=== PATIENT | male | born 2000 | race Caucasian/White ===

== ENCOUNTER 2021-12-20 01:09 | Emergency (ER) | payer OTHER ==
[2021-12-20 01:28] VITALS: TEMP 98
[2021-12-20] MEDS ORDERED: DEXAMETHASONE SOD PHOSPHATE 4 MG/ML 1 ML VIAL PO STA (02:33)
--- NOTE | 2021-12-20 02:47 | ED ---
General Adult HPI - General Chief complaint: Shortness of Breath Stated complaint: SOB Time Seen by Provider: 12/20/21 02:22 Source: patient, RN notes reviewed Mode of arrival: ambulatory Limitations: no limitations - History of Present Illness Initial comments: 21-year-old male presents to the emergency department for evaluation of cough, shortness of breath, and sensation of his throat closing. Patient states he has had a cough for the past couple of weeks and intermittent shortness of breath, worsened with activity. Reports he awoke out of sleep tonight feeling as if his throat or closing. Also complains of decreased appetite. No known sick contacts. Did not take anything to treat his symptoms prior to arrival. Denies fever, chills, headache, pain with swallowing, difficulty breathing, chest discomfort, abdominal pain, nausea, vomiting, diarrhea, or dysuria. - Related Data Allergies Allergy/AdvReac Type Severity Reaction Status Date / Time No Known Allergies Allergy Verified 12/20/21 01:22 Review of Systems ROS Statement: Those systems with pertinent positive or pertinent negative responses have been documented in the HPI. ROS Other: All systems not noted in ROS Statement are negative. Past Medical History Past Medical History: No Reported History History of Any Multi-Drug Resistant Organisms: None Reported Past Surgical History: No Surgical Hx Reported Past Psychological History: No Psychological Hx Reported Smoking Status: Current every day smoker Past Alcohol Use History: None Reported Past Drug Use History: Marijuana General Exam Limitations: no limitations (Well-developed, well-nourished male in no acute distress. Initial temperature 98.0, pulse 89, respirations 16, blood pressure 138/84, pulse ox 100% on room air.) General appearance: alert, in no apparent distress ENT exam: Present: normal exam, normal oropharynx, mucous membranes moist, TM's normal bilaterally Expanded Throat exam: normal inspection Neck exam: Present: normal inspection, full ROM. Absent: tenderness, meningismus, lymphadenopathy Respiratory exam: Present: normal lung sounds bilaterally, other (Dry nonproductive cough). Absent: respiratory distress, wheezes, rales, rhonchi, stridor Cardiovascular Exam: Present: regular rate, normal rhythm, normal heart sounds. Absent: systolic murmur, diastolic murmur, rubs, gallop, clicks GI/Abdominal exam: Present: soft, normal bowel sounds. Absent: distended, te nderness, guarding, rebound, rigid Neurological exam: Present: alert, oriented X3, CN II-XII intact, normal gait Psychiatric exam: Present: normal affect, normal mood Skin exam: Present: warm, dry, intact, normal color. Absent: rash Course Vital Signs 12/20/21 12/20/21 01:23 04:19 Temperature 98 F Pulse Rate 89 74 Respiratory 16 15 Rate Blood Pressure 138/84 129/74 O2 Sat by Pulse 100 99 Oximetry Medical Decision Making - Medical Decision Making This is a 21-year-old male who presents to the emergency department for evaluation of feeling short of breath and the sensation of his throat closing. Upon exam, patient is well-appearing and in no acute distress. He does have a dry nonproductive cough. Lung sounds are clear to auscultation. Vocal quality is unimpeded; there is no hoarseness. No oropharyngeal erythema or edema. X- rays negative. Covid swab is negative. Patient was given a dose of Decadron with some improvement. Discussed the possibility that this could be anxiety related, however given the presence of cough, this could also be URI in nature. Patient is instructed on symptomatic management. Encouraged to follow up with PCP for recheck. Return parameters discussed in detail. Patient and family verbalized understanding and agreed with this plan. Attending: Seamus. - Lab Data Lab Results 12/20/21 Range/Units 02:37 Coronavirus (PCR) Not Detected (Not Detectd) - Radiology Data Radiology results: report reviewed, image reviewed Two-view chest x-ray was obtained. Report was reviewed in its entirety. Impression per Dr. Hernandez is normal chest. Disposition Clinical Impression: URI (upper respiratory infection) Disposition: HOME SELF-CARE Condition: Stable Instructions (If sedation given, give patient instructions): Upper Respiratory Infection (ED) Additional Instructions: Consider using a humidifier or vaporizer in the room in which you sleep. Increase your intake of fluids. Rest as needed. Follow-up with your PCP for a recheck this week. Return to the emergency department with any new, worsening, or concerning symptoms. Is patient prescribed a controlled substance at d/c from ED?: No Referrals: None,Stated [Primary Care Provider] - 1-2 days Time of Disposition: 03:53
--- NOTE | 2021-12-20 02:55 | XR ---
EXAMINATION TYPE: XR chest 2V DATE OF EXAM: 12/20/2021 COMPARISON: NONE HISTORY: Cough TECHNIQUE: 2 views FINDINGS: Heart and mediastinum are normal. Lungs are clear. Diaphragm is normal. Bony thorax is norm al. IMPRESSION: Normal chest.
[2021-12-20 04:19] VITALS: BP 129/74; PULSE 74; RESP 15
== END 2021-12-20 04:28 | disposition home or self-care (01) ==
LOC: EC 01:09
DX: J06.9 Acute upper respiratory infection, unspecified (principal); F17.200 Nicotine dependence, unspecified, uncomplicated; Z20.822 Contact with and (suspected) exposure to COVID-19
CPT/HCPCS: 93005; 87635; 71046; 99285; J1100

== ENCOUNTER 2023-07-28 22:27 | Emergency (ER) | payer SELFPAY ==
[2023-07-28 22:31] VITALS: TEMP 98.3
--- NOTE | 2023-07-28 23:21 | ED ---
GI Bleed HPI - General Chief complaint: GI Bleed Stated complaint: Hemorroids Time Seen by Provider: 07/28/23 23:20 Source: patient Mode of arrival: ambulatory Limitations: no limitations - History of Present Illness Initial comments: 23-year-old male presenting for rectal pain. Patient has history of hemorrhoids, states that he did enlarging hemorrhoid and he is now unable to reduce it. Due to this increasing pain he wanted to be evaluated. He has not seen surgeon in the past. No abdominal pain, nausea, vomiting, fever. No trauma. - Related Data Previous Rx's Medication Instructions Recorded Hydrocortisone Suppository 25 mg RECTAL DAILY #30 suppositor 07/29/23 [Anusol-Hc] Allergies Allergy/AdvReac Type Severity Reaction Status Date / Time No Known Allergies Allergy Verified 02/16/22 16:28 Review of Systems ROS Statement: Those systems with pertinent positive or pertinent negative responses have been documented in the HPI. ROS Other: All systems not noted in ROS Statement are negative. Past Medical History Past Medical History: No Reported History History of Any Multi-Drug Resistant Organisms: None Reported Past Surgical History: No Surgical Hx Reported Past Psychological History: No Psychological Hx Reported Smoking Status: Current every day smoker, Vaper Past Alcohol Use History: None Reported Past Drug Use History: Marijuana General Exam - General Exam Comments Initial Comments: Visual Physical Exam Vital signs reviewed General: Well-appearing, nontoxic, no acute distress. Head: Normocephalic, atraumatic Eyes: PERRLA, EOMI ENT: Airway patent Chest: Nonlabored breathing Skin: No visual rash, normal skin tone Neuro: Alert and oriented 3 Musculoskeletal: No gross abnormalities Limitations: no limitations General appearance: alert, in no apparent distress Head exam: Present: atraumatic, normocephalic Eye exam: Present: normal appearance, EOMI Neck exam: Present: normal inspection. Absent: meningismus Respiratory exam: Absent: respiratory distress Cardiovascular Exam: Present: regular rate Rectal exam: Present: hemorrhoids Neurological exam: Present: alert, oriented X3 Psychiatric exam: Present: normal affect, normal mood Skin exam: Present: normal color Course Vital Signs 07/28/23 07/29/23 22:29 00:24 Temperature 98.3 F Pulse Rate 76 53 L Respiratory 18 16 Rate Blood Pressure 141/83 127/82 O2 Sat by Pulse 100 97 Oximetry Medical Decision Making - Medical Decision Making I performed the quick note portion of this visit, electronically signed Bobby Nelson PA-C Was pt. sent in by a medical professional or institution (ADINA Mcdermott, SLITTING AND SHIPPING SUPERVISOR, urgent care, hospital, or senior living...) When possible be specific @ -No Did you speak to anyone other than the patient for history (EMS, parent, family, police, friend...)? What history was obtained from this source @ -No Did you review nursing and triage notes (agree or disagree)? Why? @ -I reviewed and agree with nursing and triage notes Were old charts reviewed (outside hosp., previous admission, EMS record, old EKG, old radiological studies, urgent care reports/EKG's, senior living records)? Report findings @ -No old charts were reviewed Differential Diagnosis (chest pain, altered mental status, abdominal pain women, abdominal pain men, vaginal bleeding, weakness, fever, dyspnea, syncope, headache, dizziness, GI bleed, back pain, seizure, CVA, palpatations, mental health, musculoskeletal)? @ -Differential includes hemorrhoids, proctitis, fissure, abscess, this is not an all-inclusive list EKG interpreted by me (3pts min.). @ -As above X-rays interpreted by me (1pt min.). @ -None done CT interpreted by me (1pt min.). @ -None done U/S interpreted by me (1pt. min.). @ -None done What testing was considered but not performed or refused? (CT, X-rays, U/S, labs)? Why? @ -None What meds were considered but not given or refused? Why? @ -None Did you discuss the management of the patient with other professionals (kellen dockery i.e. ADINA Mcdermott, SLITTING AND SHIPPING SUPERVISOR, lab, RT, psych nurse, social work case manager, photographic equipment assembler, teacher, biosecurity officer, skilled nursing case manager)? Give summary @ -No Was smoking cessation discussed for >3mins.? @ -No Was critical care preformed (if so, how long)? @ -No Were there social determinants of health that impacted care today? How? (Homelessness, low income, unemployed, alcoholism, drug addiction, transportation, low edu. Level, literacy, decrease access to med. care, prison, rehab)? @ -No Was there de-escalation of care discussed even if they declined (Discuss DNR or withdrawal of care, Hospice)? DNR status @ -No What co-morbidities impacted this encounter? (DM, HTN, Smoking, COPD, CAD, Cancer, CVA, ARF, Chemo, Hep., AIDS, mental health diagnosis, sleep apnea, morbid obesity)? @ -None Was patient admitted / discharged? Hospital course, mention meds given and route, prescriptions, significant lab abnormalities, going to OR and other pertinent info. @ -23-year-old male presenting with chief complaint of rectal pain. History of hemorrhoids. On exam there is a large hemorrhoid noted. Patient was unable to reduce the hemorrhoid at home. He is provided with Anusol suppositories and general surgeon for follow-up. Discharged home. Follow-up with PCP. Report back to ER with any new or worsening symptoms. Discussed return parameters and answered all questions. Patient conveyed verbal understanding and agreed to the plan. I discussed this case in detail with my attending Dr. Delgado Undiagnosed new problem with uncertain prognosis? @ -No Drug Therapy requiring intensive monitoring for toxicity (Heparin, Nitro, Insulin, Cardizem)? @ -No Were any procedures done? @ -No Diagnosis/symptom? @ -Hemorrhoids Acute, or Chronic, or Acute on Chronic? @ -Acute Uncomplicated (without systemic symptoms) or Complicated (systemic symptoms)? @ -Uncomplicated Side effects of treatment? @ -No Exacerbation, Progression, or Severe Exacerbation? @ -No Poses a threat to life or bodily function? How? (Chest pain, [place], [place], pneumonia, PE, COPD, DKA, ARF, appy, cholecystitis, CVA, Diverticulitis, Homicidal, Suicidal, threat to staff... and all critical care pts) @ -No Disposition Clinical Impression: Hemorrhoid Disposition: HOME SELF-CARE Condition: Good Instructions (If sedation given, give patient instructions): Hemorrhoids (ED) Additional Instructions: Follow-up with PCP & general surgeon. Report back to ER with any new or worsening symptoms. Prescriptions: Hydrocortisone Suppository [Anusol-Hc] 25 mg RECTAL DAILY #30 suppositor Is patient prescribed a controlled substance at d/c from ED?: No Referrals: None,Stated [Primary Care Provider] - 1-2 days Koby Wynn MD [Medical Doctor] - 1-2 days Fernie See MD [STAFF PHYSICIAN] - 1-2 days Time of Disposition: 00:17
[2023-07-29 00:28] VITALS: BP 127/82; PULSE 53; RESP 16
== END 2023-07-29 01:17 | disposition home or self-care (01) ==
LOC: EC 22:27
DX: K64.9 Unspecified hemorrhoids (principal); F17.290 Nicotine dependence, other tobacco product, uncomplicated; F12.90 Cannabis use, unspecified, uncomplicated
CPT/HCPCS: 99284

== ENCOUNTER 2024-02-02 15:05 | Emergency (ER) | payer OTHER ==
--- NOTE | 2024-02-02 16:43 | US ---
EXAMINATION TYPE: US abdomen limited DATE OF EXAM: 02/02/2024 COMPARISON: NONE CLINICAL INDICATION: Male, 23 years old with history of Recurring supraumbilical bump; Lump supraumbi lical TECHNIQUE: Grayscale imaging on the umbilicus with color Doppler imaging. FINDINGS: Hypoechoic area seen supraumbilical measuring 1.5 x .6 x 1.4 cm. Unclear if this is extend ing to the abdominal surface or umbilical hernia. IMPRESSION: Supraumbilical suspected subcutaneous lipoma or fat-containing hernia. Consider CT imagin g for confirmation. [facility], , 02/02/2024 4:41 PM
--- NOTE | 2024-02-02 16:58 | ED ---
Skin/Abscess/FB HPI - General Chief complaint: Skin/Abscess/Foreign Body Stated complaint: Urogenital Time Seen by Provider: 02/02/24 15:16 Source: patient, RN notes reviewed Mode of arrival: ambulatory Limitations: no limitations - History of Present Illness Initial comments: This is a 23-year-old male presenting with bump over bellybutton x 7 days. S tates bump appearance is intermittent with no associated pain. Patient states bump was present yesterday but is not visible/palpable today. Patient denies fever, chills, abdominal pain, constipation/diarrhea, hematochezia, melena. Onset/Timin -: days(s) Consistency: intermittent Improves with: immobilization, rest Worsens with: movement Context: none Associated symptoms: denies other symptoms Treatments Prior to Arrival: none - Related Data Previous Rx's Medication Instructions Recorded Hydrocortisone Suppository 25 mg RECTAL DAILY #30 suppositor 07/29/23 [Anusol-Hc] Famotidine [Pepcid] 20 mg PO BID #28 tablet 09/24/23 Ibuprofen [Motrin] 600 mg PO Q8HR PRN #20 tab 09/24/23 Allergies Allergy/AdvReac Type Severity Reaction Status Date / Time No Known Allergies Allergy Verified 09/24/23 12:43 Review of Systems ROS Statement: Those systems with pertinent positive or pertinent negative responses have been documented in the HPI. ROS Other: All systems not noted in ROS Statement are negative. Past Medical History Past Medical History: No Reported History History of Any Multi-Drug Resistant Organisms: None Reported Past Surgical History: No Surgical Hx Reported Past Psychological History: No Psychological Hx Reported Smoking Status: Current every day smoker, Vaper Past Alcohol Use History: Rare Past Drug Use History: Marijuana General Exam Limitations: no limitations General appearance: alert, in no apparent distress Head exam: Present: atraumatic, normocephalic, normal inspection Eye exam: Present: normal appearance, PERRL, EOMI. Absent: scleral icterus, conjunctival injection, periorbital swelling ENT exam: Present: normal exam, mucous membranes moist Neck exam: Present: normal inspection. Absent: tenderness, meningismus, lymphadenopathy Respiratory exam: Present: normal lung sounds bilaterally. Absent: respiratory distress, wheezes, rales, rhonchi, stridor Cardiovascular Exam: Present: regular rate, normal rhythm, normal heart sounds. Absent: systolic murmur, diastolic murmur, rubs, gallop, clicks GI/Abdominal exam: Present: soft, normal bowel sounds. Absent: distended, tenderness, guarding, rebound, rigid, mass, hernia (No obvious umbilical or supraumbilical herniation palpable) Extremities exam: Present: normal inspection, full ROM, normal capillary refill. Absent: tenderness, pedal edema, joint swelling, calf tenderness Back exam: Present: normal inspection Neurological exam: Present: alert, oriented X3, CN II-XII intact Psychiatric exam: Present: normal affect, normal mood Skin exam: Present: warm, dry, intact, normal color. Absent: rash Course Vital Signs 02/02/24 02/02/24 15:16 18:30 Temperature 98.3 F 98.1 F Pulse Rate 76 68 Respiratory 16 18 Rate Blood Pressure 129/86 124/70 O2 Sat by Pulse 98 99 Oximetry Medical Decision Making - Medical Decision Making Was pt. sent in by a medical professional or institution (, PA, BALLISTICS PROFESSOR, urgent care, hospital, or usp...) When possible be specific @ -No Did you speak to anyone other than the patient for history (EMS, parent, family, police, friend...)? What history was obtained from this source @ -No Did you review nursing and triage notes (agree or disagree)? Why? @ -I reviewed and agree with nursing and triage notes Were old charts reviewed (outside hosp., previous admission, EMS record, old EKG, old radiological studies, urgent care reports/EKG's, usp records)? Report findings @ -No old charts were reviewed Differential Diagnosis (chest pain, altered mental status, abdominal pain women, abdominal pain men, vaginal bleeding, weakness, fever, dyspnea, syncope, headache, dizziness, GI bleed, back pain, seizure, CVA, palpatations, mental health, musculoskeletal)? @ -Differential Abdominal Pain Men: Appendicitis, cholecystitis, diverticulosis, ischemic bowel, pancreatitis, hepatitis, UTI, gastroenteritis, AAA, incarcerated hernia, bowel obstruction, constipation, inflammatory bowel, hepatitis, peptic ulcer disease, splenic infarction, perforated viscus, testicular torsion, this is not meant to be an all-inclusive list EKG interpreted by me (3pts min.). @ -Not done X-rays interpreted by me (1pt min.). @ -None done CT interpreted by me (1pt min.). @ -Abdomen/pelvic CT shows fat-containing ventral wall hernia. U/S interpreted by me (1pt. min.). @ -Abdominal ultrasound shows possible supraumbilical lipoma or fat-containing hernia, CT recommended by radiologist. What testing was considered but not performed or refused? (CT, X-rays, U/S, labs)? Why? @ -None What meds were considered but not given or refused? Why? @ -None Did you discuss the management of the patient with other professionals (professionals i.e. , PA, BALLISTICS PROFESSOR, lab, RT, psych nurse, social sciences lecturer, slate mixer, teacher, family preservation officer, casework specialist)? Give summary @ -No Was smoking cessation discussed for >3mins.? @ -No Was critical care preformed (if so, how long)? @ -No Were there social determinants of health that impacted care today? How? (Homelessness, low income, unemployed, alcoholism, drug addiction, transportation, low edu. Level, literacy, decrease access to med. care, group home, rehab)? @ -No Was there de-escalation of care discussed even if they declined (Discuss DNR or withdrawal of care, Hospice)? DNR status @ -No What co-morbidities impacted this encounter? (DM, HTN, Smoking, COPD, CAD, C ancer, CVA, ARF, Chemo, Hep., AIDS, mental health diagnosis, sleep apnea, morbid obesity)? @ -None Was patient admitted / discharged? Hospital course, mention meds given and route, prescriptions, significant lab abnormalities, going to OR and other pertinent info. @ -Abdominal ultrasound shows possible supraumbilical lipoma or fat-containing hernia, CT recommended by radiologist. Abdomen/pelvic CT shows fat-containing ventral wall hernia. Advised follow-up with PCP for ongoing care. Undiagnosed new problem with uncertain prognosis? @ -No Drug Therapy requiring intensive monitoring for toxicity (Heparin, Nitro, Insulin, Cardizem)? @ -No Were any procedures done? @ -No Diagnosis/symptom? @ -Abdominal wall hernia Acute, or Chronic, or Acute on Chronic? @ -Acute Uncomplicated (without systemic symptoms) or Complicated (systemic symptoms)? @ -Uncomplicated Side effects of treatment? @ -No Exacerbation, Progression, or Severe Exacerbation? @ -No Poses a threat to life or bodily function? How? (Chest pain, [place], [place], pneumonia, PE, COPD, DKA, ARF, appy, cholecystitis, CVA, Diverticulitis, Homicidal, Suicidal, threat to staff... and all critical care pts) @ -No Disposition Clinical Impression: Abdominal wall hernia Disposition: HOME SELF-CARE Condition: Good Instructions (If sedation given, give patient instructions): Ventral Hernia (ED) Is patient prescribed a controlled substance at d/c from ED?: No Referrals: [facility] [NON-STAFF] - 1-2 days [facility] [NON-STAFF] - 1-2 days None,Stated [Primary Care Provider] - 1-2 days Forms: Area PCPs Time of Disposition: 17:53
--- NOTE | 2024-02-02 17:39 | CT ---
EXAMINATION TYPE: CT abdomen pelvis wo con DATE OF EXAM: 02/02/2024 5:13 PM COMPARISON: Ultrasound CLINICAL INDICATION: Male, 23 years old with history of Possible hernia; intermittent bump above mendoza y button TECHNIQUE: Axial CT abdomen pelvis wo con;Sagittal and coronal reformats were created on a separate workstation. Contrast used: mL of , (none if empty) Oral contrast used: without Oral Contrast (none if empty) CT DLP: 426.7 mGycm, Automated exposure control for dose reduction was used. FINDINGS: LOWER CHEST: Unremarkable ABDOMEN LIVER: Unremarkable GALLBLADDER AND BILE DUCTS: Unremarkable. PANCREAS: Unremarkable. SPLEEN: Unremarkable. ADRENAL GLANDS: Unremarkable. KIDNEYS AND URETERS: No evidence of hydronephrosis or renal calculus. The ureters are unremarkable. PELVIS BLADDER: No evidence for wall thickening or mass given limitations of exam. REPRODUCTIVE: Unremarkable. ABDOMEN & PELVIS STOMACH AND BOWEL: No evidence of bowel obstruction. PERITONEUM/RETROPERITONEUM: No evidence of pneumoperitoneum or free fluid. VASCULATURE: No evidence of aortic aneurysm. MUSCULOSKELETAL: No acute osseous abnormalities LYMPH NODES: No gross evidence for lymphadenopathy. SOFT TISSUE/ABDOMINAL WALL: Fat-containing ventral hernia in the area of palpable abnormality with ne ck measuring up to 3 mm. IMPRESSION: Area of concern correlates with fat-containing ventral wall hernia. [facility], , 02/02/2024 5:37 PM
[2024-02-02 18:32] VITALS: BP 124/70; PULSE 68; RESP 18; TEMP 98.1
== END 2024-02-02 18:32 | disposition home or self-care (01) ==
LOC: EC 15:05
DX: K43.9 Ventral hernia without obstruction or gangrene (principal); F17.290 Nicotine dependence, other tobacco product, uncomplicated
CPT/HCPCS: 74176; 76705; 99284